=== PATIENT | female | born 1950 | race Asian ===

== ENCOUNTER 2017-02-21 09:00 | Outpatient (RCR) | payer OTHER | END 2017-02-28 | disposition home or self-care (01) | LOC: PTY 09:00 | DX: G20 Parkinson's disease (principal); R29.6 Repeated falls; M54.16 Radiculopathy, lumbar region; G89.29 Other chronic pain; M54.5 Low back pain; M54.2 Cervicalgia ==

== ENCOUNTER 2017-03-22 09:49 | Outpatient (RCR) | payer OTHER | END 2017-03-30 | disposition home or self-care (01) | LOC: PTY 09:49 | DX: G20 Parkinson's disease (principal); R29.6 Repeated falls; M54.16 Radiculopathy, lumbar region ==

== ENCOUNTER 2017-05-22 14:30 | Outpatient (RCR) | payer OTHER | END 2017-05-31 | disposition home or self-care (01) | LOC: PTY 14:30 | DX: G20 Parkinson's disease (principal); R29.6 Repeated falls; G24.9 Dystonia, unspecified ==

== ENCOUNTER 2017-06-22 13:00 | Outpatient (RCR) | payer OTHER | END 2017-06-28 | disposition home or self-care (01) | LOC: PTY 13:00 | DX: G20 Parkinson's disease (principal); R29.6 Repeated falls ==

== ENCOUNTER 2017-07-04 09:50 | Outpatient (RCR) | payer OTHER | END 2017-07-29 | disposition home or self-care (01) | LOC: PTY 09:50 | DX: G20 Parkinson's disease (principal); R29.6 Repeated falls; G24.9 Dystonia, unspecified ==

== ENCOUNTER 2017-07-31 08:00 | Outpatient (RCR) | payer OTHER | END 2017-08-28 | disposition home or self-care (01) | LOC: PTY 08:00 | DX: R29.6 Repeated falls (principal); G20 Parkinson's disease ==